=== PATIENT | female | born 1985 | race Caucasian/White ===

== ENCOUNTER 2018-08-03 05:39 | Inpatient (IN) | payer OTHER ==
[~2018-08-03] VITALS: Ht 162.6 cm; Wt 108.0 kg
[~2018-08-03 05:39] MED LIST: ACETAMINOP-CODEI5 ML PO; BACTRIM DS TAB1 EACH PO; KEFLEX500 M1 PO; OMEPRAZOLE40 M1 PO
[2018-08-03 06:05] VITALS: BP 135/85
--- NOTE | 2018-08-03 09:02 | Operative Report ---
Operative/Inv Procedure Report Surgery Date: 08/03/18 Name of Procedure: Primary low flap transverse section Pre-Operative Diagnosis: Term patient choice gestational diabetes Post-Operative Diagnosis: Same Surgeon/Inspector Poising: Gail Grace MD Anesthesia: block Operative/Procedure Note Note: Procedure note patient was taken to the operating room placed in supine position Lemon was placed sterilely skin testing was performed again and found to be adequate for surgery to the symphysis pubis is carried down to the fascia cut with in curvilinear fashion Findings: Contracted pelvis viable male3 vessel
--- NOTE | 2018-08-03 16:56 | History & Physical Pre-Op ---
General Information and HPI MD Statement: I have seen and personally examined KATEY QUINTANILLA and documented this H&P. The patient is a 32 year old F who presented with a patient stated chief complaint of here to have my baby []. History of Present Illness: 32-year-old 1 para 0 at 39 weeks gestation with gestational diabetes for section Allergies/Medications Allergies: Coded Allergies: No Known Allergies (07/14/17) Home Med list Cephalexin (Keflex) 500 MG CAPSULE 1 CAP PO TID ABSCESS Omeprazole 40 MG CAPSULE.DR 1 CAP PO QAM STOMACH PROBLEMS (Reported) Sulfamethoxazole/Trimethoprim (Bactrim Ds Tablet) 800 MG-160 MG TABLET 1 TAB PO BID ABSCESS Tylenol With Codeine (Acetaminop-Codeine 120-12 MG/5) 120 MG-12 MG/5 ML (5 ML) SOLUTION 15 ML PO Q6H PRN PAIN Past History Medical History Neurological: NONE EENT: NONE Cardiovascular: NONE Respiratory: NONE Gastrointestinal: GERD Hepatic: NONE Renal: NONE Musculoskeletal: NONE Psychiatric: NONE Endocrine: NONE Blood Disorders: NONE Cancer(s): NONE 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 6 oz. Pelvic closed contracted pelvis Extremities negative edema negative Homans Assessment/Plan Assessment/Plan: Assessment is a 32-year-old 1 para 0 at 39 weeks patient choice for section well-controlled gestational diabetes and a history of spina bifida plan consult with Dr. Mckeon regarding anesthesia risks antibiotics prepping of vagina section As Ranked By This Provider Problem List: 1.
[2018-08-04 08:29] LABS: ABSOLUTE BASOPHIL COUNT 0 /CUMM (0.0-0.2); ABSOLUTE EOSINOPHIL COUNT 0.1 /CUMM (0.0-0.7); ABSOLUTE GRANULOCYTE CT 7.5 /CUMM (1.4-6.5); ABSOLUTE LYMPH COUNT 2.4 /CUMM (1.2-3.4); ABSOLUTE MONOCYTE COUNT 1.3 /CUMM (0.10-0.60); BASOPHIL % 0.4 % (0.0-2.0); EOSINOPHIL % 0.8 % (0-5); MEAN CORPUSCULAR HGB 27.8 PG (27.0-31.0); MEAN CORPUSCULAR HGB CONC 33.1 G/DL (33.0-37.0); MEAN CORPUSCULAR VOLUME 83.8 FL (81.0-99.0); MEAN PLATELET VOLUME 9.6 FL (7.4-10.4); PLATELET COUNT 234 /CUMM (130-400); RED BLOOD CELL CT 3.21 /CUMM (4.20-5.40); WHITE BLOOD CELL COUNT 11.3 /CUMM (4.8-10.8)
[2018-08-04 09:51] LABS: HEMATOCRIT 26.9 % (37-47)
--- NOTE | 2018-08-04 10:17 | PN- OBGYN ---
Surgical Brief Attending Note Brief Attending Note: Seen and evaluated States pain is better controlled States no nausea Denies vomiting Starting to breast feed Mild vaginal bleeding after same with cramps. Afebrile and BP 135/85 Lungs clear Abdomen soft and incision with madisyn intact Fundus nontender. Bowel sounds noted Extremity. 1-2+ edema. No hieu's Neuro. Motor and sensory grossly intact and Aox3 Meds. Lovenox WBC 11.3 Hct 26.9 and platelets 234 POD#1 s/p elective Csection for this patient with history of spina bifida and complicated by GDM. GI. Advance as tolerated. Benefits of gum as sham feeding and passing of flatus. Pain mgmt strategies reviewed and benefits of binder. Breast feeding counseling provided VTE prophlyaxis with lovenox Heme. Anemia noted. To continue on vitamins daily and iron rich foods. No evidence of orthostatic findings. Tdap prior to dc and I will review flu shot as well. GDM. 6-12 weeks for GTT to assess for over diabetes. Breast feeding will reduce that risk.
--- NOTE | 2018-08-05 09:46 | PN- OBGYN ---
Surgical Brief Attending Note Brief Attending Note: Seen and evaluated She was resting in bed Denies nausea Denies vomiting Breast feeding Passing flatus Pain she states is controlled Afebrile and Vitals stable per paper record Lungs clear Abdomen soft and nondisteded and fundus firm at umbilucus Wound is clean dry intact and no erythema and madisyn intact Extremity. 1+ edema and negative homans Meds. Motrin liquid. Lovenox. Percocet prn Hct 26.9 platelets 234 Urine culture negative POD#2 s/p primary csection and complicated by GDM. Tolerating po. Pain management with motrin, narcotics prn and abdominal binder Anemia noted and no orthostatic symptoms noted. Continue on iron/ as outpatient VTE prophylaxis with lovenox and ambulation. GDM. 6-12 week GTT to assess for overt diabetes. Breast feeding though to reduce that risk Influenza vaccine prior to dc. Shortage of Tdap at facility. Recommend she received at local pharmacy given state. DC planning for 08/06/18
[2018-08-06] MEDS ORDERED: HYDROCODON-ACET15 ML PO (10:02)
[2018-08-06] MEDS ORDERED: IBUPROFEN100 MG/52 PO (10:02)
== END 2018-08-06 13:00 | DRG 766 ==
LOC: GNO 05:39
PROVIDERS: Specialist
PROC: 10D00Z1 Extraction of Products of Conception, Low, Open Approach (ICD-10-PCS; principal; 2018-08-03)
DX: O24.420 Gestational diabetes mellitus in childbirth, diet controlled (principal); Z3A.39 39 weeks gestation of pregnancy; Z37.0 Single live birth; Z86.69 Personal history of other diseases of the nervous system and sense organs
CPT/HCPCS: GNOS; 87086; J1650; J1885; J7120; Q2036